=== PATIENT | female | born 1945 | race Caucasian/White ===

== ENCOUNTER 2017-03-09 08:00 | Outpatient (CLI) | payer MEDICARE, OTHER | END 2017-03-09 08:01 | disposition home or self-care (01) | LOC: LAB.WCP 08:00 | PROVIDERS: ATTEND Family Medicine | DX: N39.0 Urinary tract infection, site not specified (principal) | CPT/HCPCS: 87086 ==

== ENCOUNTER 2017-03-16 08:00 | Outpatient (CLI) | payer MEDICARE, OTHER | END 2017-03-16 08:01 | disposition home or self-care (01) | LOC: LAB.R 08:00 | PROVIDERS: ATTEND Physician Assistant Medical | DX: L03.039 Cellulitis of unspecified toe (principal) | CPT/HCPCS: 87070; 87205 ==

== ENCOUNTER 2017-04-02 08:00 | Outpatient (CLI) | payer MEDICARE, OTHER | END 2017-04-02 08:01 | disposition home or self-care (01) | LOC: LAB.R 08:00 | PROVIDERS: ATTEND Physician Assistant Medical | DX: L08.9 Local infection of the skin and subcutaneous tissue, unspecified (principal) | CPT/HCPCS: 87070; 87205 ==

== ENCOUNTER 2017-07-28 10:30 | Outpatient (CLI) | payer MEDICARE, OTHER | END 2017-07-28 10:31 | disposition home or self-care (01) | LOC: LAB.R 10:30 | PROVIDERS: ATTEND Podiatrist | DX: L03.116 Cellulitis of left lower limb (principal) | CPT/HCPCS: 87070; 87205 ==

== ENCOUNTER 2017-07-28 10:59 | Outpatient (CLI) | payer MEDICARE, OTHER ==
--- NOTE | 2017-07-28 15:21 | XRAY Report ---
THREE VIEW LEFT THIRD TOE: 07/28/2017 CLINICAL INDICATION: Ulcer. FINDINGS: AP, lateral, oblique views of the left third toe demonstrate soft tissue swelling. There is no evidence of fracture. No osteolysis is seen to suggest osteomyelitis. IMPRESSION: SOFT TISSUE SWELLING, BUT NO EVIDENCE OF FRACTURE OR OSTEOMYELITIS. TD: 07/28/2017 15:19
== END 2017-07-28 11:00 | disposition home or self-care (01) ==
LOC: DI 10:59
PROVIDERS: ATTEND Podiatrist
DX: L97.529 Non-pressure chronic ulcer of other part of left foot with unspecified severity (principal); L03.116 Cellulitis of left lower limb; R22.42 Localized swelling, mass and lump, left lower limb
CPT/HCPCS: 73660; 87070; 87205

== ENCOUNTER 2018-01-12 11:45 | Outpatient (CLI) | payer MEDICARE, OTHER | END 2018-01-12 11:46 | LOC: LAB.R 11:45 | PROVIDERS: ATTEND Podiatrist | DX: E11.622 Type 2 diabetes mellitus with other skin ulcer (principal) | CPT/HCPCS: 87070; 87077; 87181; 87205 ==

== ENCOUNTER 2018-03-18 10:32 | Outpatient (CLI) | payer MEDICARE, OTHER ==
--- NOTE | 2018-03-19 12:04 | Mammography Report ---
Reason: SCREENING MAMMO Procedure Date: 03/18/2018 Accession Number: [id number] / [id number] Procedure: MGN - Screening Mammo Dig Bilat CPT Code: FULL RESULT: EXAM: Screening Mammo Dig Bilat DATE: 03/18/2018 10:51 AM CLINICAL HISTORY: Routine screening TECHNIQUE: Bilateral CC and MLO views were obtained. COMPARISON: 01/16/2016, 10/19/2014, 06/08/2013 and 03/15/2012 FINDINGS: There are scattered fibroglandular densities. There is no significant interval change on the left. No suspicious masses, clustered microcalcifications, or regions of architectural distortion are identified. On the right in the upper outer quadrant approximately 8 to 9 cm from the nipple are 4-5 punctate appearing calcifications not definitely seen prior to 2015. Otherwise, no dominant mass, skin thickening or architectural distortion on the right. IMPRESSION: Negative left breast. Needs additional evaluation right breast by magnification views. RECOMMENDATION: Additional views right breast. BIRADS CATEGORY 0: Needs additional evaluation right breast. STANDARD QUALIFYING STATEMENTS: 1. This examination was reviewed with the aid of Computer-Aided Detection (CAD). 2. A negative or benign imaging report should not delay biopsy if clinically suspicious findings are present. Consider surgical consultation if warrented. More than 5% of cancers are not identified by imaging. 3. Dense breasts may obscure an underlying neoplasm.
== END 2018-03-18 10:33 | disposition home or self-care (01) ==
LOC: DI.N 10:32
DX: Z12.31 Encounter for screening mammogram for malignant neoplasm of breast (principal); R92.1 Mammographic calcification found on diagnostic imaging of breast
CPT/HCPCS: 77067

== ENCOUNTER 2018-04-08 13:20 | Outpatient (CLI) | payer MEDICARE, OTHER ==
--- NOTE | 2018-04-08 15:23 | Mammography Report ---
Reason: ABN MAMMO - RT SPEC VIEWS Procedure Date: 04/08/2018 Accession Number: [id number] / [id number] Procedure: ELIZABETH - Diag Special Views Dig RT CPT Code: FULL RESULT: EXAM: Diag Special Views Dig RT DATE: 04/08/2018 2:09 PM CLINICAL HISTORY: Recall from screening exam 03/18/2018 for right breast calcifications. TECHNIQUE: Right CC MLO and 90 degree 2-D and 3-D mammography. Spot magnification CC and 90 degree lateral. COMPARISON: 03/18/2018 through 03/15/2012 FINDINGS: The breasts demonstrate scattered fibroglandular densities bilaterally. Right breast: There is a 5 mm grouping of calcifications in the 11:00 breast, 10 cm from nipple. These calcifications appear to show dependent layering favoring milk of calcium. There is no associated mass or distortion. IMPRESSION: 5 mm grouping of probable milk of calcium. Probably benign. BI-RADS Category 3 RECOMMENDATION: 6 month follow-up diagnostic mammography to confirm expected imaging stability. Results and recommendations were conveyed to the patient at the time of this imaging appointment. BI-RADS CATEGORY 3: Probably benign STANDARD QUALIFYING STATEMENTS: 1. This examination was not reviewed with the aid of Computer-Aided Detection (CAD). 2. A negative or benign imaging report should not preclude biopsy if clinically suspicious findings are present. 3. Dense breasts may obscure an underlying neoplasm. 4. This examination was reviewed with the aid of 3D breast imaging (tomosynthesis).
== END 2018-04-08 13:21 | disposition home or self-care (01) ==
LOC: DI 13:20
PROVIDERS: ATTEND Physician Assistant Medical
DX: N63.10 Unspecified lump in the right breast, unspecified quadrant (principal); R92.8 Other abnormal and inconclusive findings on diagnostic imaging of breast

== ENCOUNTER 2018-11-18 10:22 | Outpatient (CLI) | payer MEDICARE, OTHER ==
--- NOTE | 2018-11-18 11:26 | Mammography Report ---
Reason: 6 MO F/U - ABN MAMMOGRAM Procedure Date: 11/18/2018 Accession Number: [id number] / [id number] Procedure: ELIZABETH - Diagnostic Dig RT CPT Code: FULL RESULT: EXAM: Diagnostic Dig RT DATE: 11/18/2018 11:12 AM CLINICAL HISTORY: Diagnostic mammogram. Follow-up of calcifications. TECHNIQUE: (R) - Right CC and MLO views were obtained. Right spot magnified CC, spot magnified ML and ML images are obtained. COMPARISON: 04/08/2018 through 10/11/2014. PARENCHYMAL PATTERN: (A) - The breast(s) demonstrate(s) scattered fibroglandular densities. FINDINGS: The previously seen 5 mm grouping of calcifications in the 11:00 right breast, 10 cm from the nipple have increased in number. Previously favored layering is not demonstrated on today's exam. No associated mass or distortion is seen. IMPRESSION: Suspicious findings. BI-RADS category 4. RECOMMENDATION: (BIOPSY) - stereotactic, right breast. BI-RADS CATEGORY: (4) - Suspicious. STANDARD QUALIFYING STATEMENTS: 1. This examination was not reviewed with the aid of Computer-Aided Detection (CAD). 2. A negative or benign imaging report should not preclude biopsy if clinically suspicious findings are present. 3. Dense breasts may obscure an underlying neoplasm. 4. This examination was reviewed with the aid of 3D breast imaging (tomosynthesis).
== END 2018-11-18 10:23 | disposition home or self-care (01) ==
LOC: DI 10:22
PROVIDERS: ATTEND Physician Assistant Medical
DX: R92.8 Other abnormal and inconclusive findings on diagnostic imaging of breast (principal)
CPT/HCPCS: 77065; G0279

== ENCOUNTER 2018-12-07 09:53 | Outpatient (CLI) | payer MEDICARE, OTHER ==
[~2018-12-07 09:53] MED LIST: BUFFERED LIDOCAINE 10 ML SYRINGE ONE; BUPIVACAINE 0.5%-EPI 1:200000 PF 10 ML VIAL ONE
--- NOTE | 2018-12-07 15:29 | Mammography Report ---
Reason: ABN MAMMOGRAM - CALCIFICATIONS Procedure Date: 12/07/2018 Accession Number: [id number] / [id number] Procedure: ELIZABETH - Stereotactic Core BX RT CPT Code: FULL RESULT: EXAM: Stereotactic Core BX RT DATE: 12/07/2018 11:46 AM CLINICAL HISTORY: ABN MAMMOGRAM - CALCIFICATIONS COMPARISON: Mammograms dating 11/18/2018 through 03/19/2018. CLINICAL DATA: Target calcifications measuring 5 mm in the 11 o'clock axis of the right breast. Informed consent was obtained. The patient was positioned in the mammography machine with biopsy attachment. Targeting imaging was obtained and the lesion was selected. The breast was approached from the lateral aspect. Using standard aseptic technique, 1% buffered lidocaine was injected into the breasts for local anesthesia. A small sujatha was made in the skin with a #11 blade. A 9-gauge vacuum-assisted device was advanced into the breasts towards the target and confirmatory imaging was obtained to verify targeting and 12 specimens were obtained. Specimen radiography was performed which demonstrated the presence of calcifications in the sample. A biopsy marker clip was then placed into the biopsy cavity. The biopsy device was subsequently removed from the breast. Hemostasis was achieved. Follow-up 3-D mammography was then performed to verify biopsy targeting and clip placement. The mammography showed excellent clip position . The wound was dressed and ice applied. The patient was observed for approximately 15 minutes, then discharged from the diagnostic imaging Department in stable condition following instructions on wound care and obtaining biopsy results. The patient is scheduled to receive her biopsy results from [facility] Esquivel . The tissue was sent for histologic analysis. IMPRESSION: Uncomplicated right breast stereotactic biopsy. RADIA
[2018-12-07] MEDS ORDERED: BUFFERED LIDOCAINE 10 ML SYRINGE IU ONE (15:31)
== END 2018-12-07 09:54 | disposition home or self-care (01) ==
LOC: DI 09:53
PROVIDERS: ATTEND Physician Assistant Medical
DX: R92.1 Mammographic calcification found on diagnostic imaging of breast (principal); D24.1 Benign neoplasm of right breast; R92.0 Mammographic microcalcification found on diagnostic imaging of breast
CPT/HCPCS: 19081

== ENCOUNTER 2019-02-17 11:27 | Outpatient (CLI) | payer MEDICARE, OTHER | END 2019-02-17 11:28 | disposition home or self-care (01) | LOC: DI 11:27 | PROVIDERS: ATTEND Physician Assistant Medical | DX: I51.7 Cardiomegaly (principal) | CPT/HCPCS: 93306 ==

== ENCOUNTER 2020-01-18 10:52 | Outpatient (CLI) | payer MEDICARE, OTHER ==
--- NOTE | 2020-01-19 07:29 | Mammography Report ---
BILATERAL DIGITAL SCREENING MAMMOGRAM 3D/2D: 01/18/2020 CLINICAL: Routine screening. Comparison is made to exams dated: 12/07/2018 mammogram, 11/18/2018 mammogram, 04/08/2018 mammogram, mammogram, 03/18/2018 mammogram, and 10/19/2014 mammogram - [facility]. Th ere are scattered fibroglandular elements in both breasts. There is a biopsy clip in the right breast. No significant masses, calcifications, or other findings are seen in either breast. There has been no significant interval change. IMPRESSION: NEGATIVE There is no mammographic evidence of malignancy. A 1 year screening mammogram is recommended. This exam was interpreted at Station ID: [id number]. NOTE: For mammograms, a report in lay terms will be sent to the patient. Approximately 15% of breast malignancies will not be visualized mammographically. In the management of a palpable breast mass, a negative mammogram must not discourage biopsy of a clinically suspicious lesion. Electronically Signed By: Jacobo walter/hien:01/18/2020 16:06:38 ACR BI-RADS Category 1: Negative 3341F PARENCHYMAL PATTERN: (A) - The breast(s) demonstrate(s) scattered fibroglandular densities. BI-RADS CATEGORY: (1) - 1 RECOMMENDATION: (ANNUAL) - Recommend routine annual screening mammography. [id number] 1 year screening LATERALITY: (B)
== END 2020-01-18 10:53 | disposition home or self-care (01) ==
LOC: DI 10:52
DX: Z12.31 Encounter for screening mammogram for malignant neoplasm of breast (principal)
CPT/HCPCS: 77063; 77067

== ENCOUNTER 2020-06-25 15:00 | Outpatient (CLI) | payer MEDICARE, OTHER ==
--- NOTE | 2020-06-25 16:52 | DEXA Report ---
PROCEDURE: Dexa Spine and/or Hip INDICATIONS: POST MENOPAUSAL TECHNIQUE: Dual energy x-ray absorptiometry (DXA) was performed on a Bubbly System. Regions measur ed are the AP Spine, femoral neck, and if needed forearm. COMPARISON: None. FINDINGS: Lumbar Spine: Bone Mineral Density 1.167 g/cm/cm,T score 0, normal Left Hip: Bone Mineral Density 0.895 g/cm/cm,T score -0.9, normal Left Femoral Neck: Bone Mineral Density 0.860 g/cm/cm, T score -1.3, minimal osteopenia (T score greater or equal to -1.0: NORMAL) (T score from -1.1 to -2.4: OSTEOPENIA) (T score less than or equal to -2.5 to: OSTEOPOROSIS) Impression: Minimal osteopenia in the left femoral neck. Patients with diagnosis of osteoporosis or osteopenia should have regular bone mineral density assess ment. For those eligible for Medicare, routine testing is allowed once every 2 years. Testing frequ ency can be increased for patients who have rapidly progressing disease or for those who are receivin g medical therapy to restore bone mass. Reviewed by: Bernice Carmona MD on 06/25/2020 4:50 PM PST Approved by: Bernice Carmona MD on 06/25/2020 4:50 PM PST Station ID: [id number]
== END 2020-06-25 15:01 | disposition home or self-care (01) ==
LOC: DI 15:00
PROVIDERS: ATTEND Physician Assistant Medical
DX: M85.88 Other specified disorders of bone density and structure, other site (principal)

== ENCOUNTER 2021-07-16 08:50 | Outpatient (CLI) | payer MEDICARE, OTHER ==
[2021-07-16] MEDS ORDERED: REGADENOSON 0.4 MG/5 ML SYRINGE IVP ONE ×2 (11:21→15:05)
[2021-07-16] MEDS ORDERED: AMINOPHYLLINE 500 MG/20 ML VIAL ONE (11:21)
--- NOTE | 2021-07-16 13:45 | CARDIAC PROCEDURE NOTE ---
Stress Test Report Service Date: 07/16/21 Ordering Provider: TOMAS Esquivel Indication for Test: Dyspnea on exertion Cardiac Risk Factors: Postmenopausal status, diabetes mellitus on insulin, obesity, hypertension, hyperlipidemia, family history of heart disease in her mother with an PR. Type of Stress Test: Pharmacologic Stress Test with MPI Pharmacologic Agent: Lexiscan Procedure: After signing informed consent, the patient underwent a Lexiscan pharmaceutical stress test with nuclear myocardial perfusion imaging. Resting Heart Rate: 82 Peak HR: 103 with frequent unifocal PVCs. Resting BP: 220/78, then pt rested for 15 min and BP was 176/81 before starting test Peak BP: 174/80 Lexiscan was infused per protocol. Pt had brief SOB and no chest pain or nausea. Resting EKG: NSR, Left atrial enlargement, rare PVCs. EKG at peak: Sinus tachycardia, rate 103, frequent unifocal PVCs with a run of ventricular bigeminy, scooping 2mm ST segment depressions in leads II, III, AVF, and V6. Nuclear images were reported separately. Summary: 1) Abnormal resting BP and resting EKG. 2) PVCs increased with Lexiscan stress. 3) Non-significant EKG changes seen with Lexiscan stress. 4) Nuclear images were reported separately and showed: Normal distribution of radioactive activity in the left and right ventricular myocardium, no fixed or reversible perfusion defects, normal LV ejection fraction. Conclusion: 1) Normal stress test regarding coronary ischemia or infarction 2) This patient's cardiac risk: Low-Moderate
--- NOTE | 2021-07-16 21:31 | Nuclear Medicine Report ---
PROCEDURE: Rest and stress myocardial perfusion SPECT with gated imaging and ejection fraction INDICATIONS: DYSPNEA ON EXERTION RADIOPHARMACEUTICAL: 12.4 mCi Tc-99m Myoview IV at rest and 38.5 mCi Tc-99m Myoview IV at peak exerc ise. Xmt-rxa-bjldodsn was performed. Lexiscan 0.4 mg was administered. TECHNIQUE: Radiopharmaceutical was injected at peak stress test, and also at rest. SPECT images wer e obtained. SPECT myocardial perfusion images were displayed in short axis, horizontal long axis, an d vertical long axis views. Gated images were reviewed using AutoQUANT software. COMPARISON: None available. FINDINGS: Raw data: There is good myocardial labeling by radiotracer. No significant motion artifacts. Lung- to-heart ratio is 0.33 (normal is less than 0.46 for tetrafosmin tracer). Left ventricle function: Gated images demonstrate normal left ventricle wall thickening. No segment al wall motion abnormality. No transient ischemic dilation; TID is 1.1 (normal less than 1.30). The left ventricle resting end-diastolic volume is 56 mL. Left ventricle stress ejection fraction is 89 %; normal values are above 45%. Myocardial perfusion: There is normal distribution of activity in the left and right ventricular porsche cardium. No fixed or reversible perfusion defects. IMPRESSION: No stress perfusion defects to indicate ischemia. Ejection fraction 89%. No definitive EKG changes of ischemia. PQRS ATTESTATIONS: Measure 322 - Is this imaging test primarily performed on a low-risk surgery patient for preoperative evaluation within 30 days preceding their low-risk non-cardiac surgery? Low-risk surgery is defined as cardiac or myocardial infarction less than 1%, including (but not limited to) endoscopic pr ocedures, superficial procedures, cataract surgery, and excisional breast surgery: Answer: No Measure 323 - Is this imaging test performed primarily for the monitoring of an asymptomatic patient who had percutaneous coronary intervention on the visit date or within 2 years of the visit date? An swer: No Measure 324 - Is this imaging test performed primarily for the initial detection and risk assessment on an asymptomatic, low coronary heart disease patient? Low CHD risk definition = clinicians should consider the maximum number of available patient factors used to estimate risk based on [place] (A TP III criteria), typically age, gender, diabetes, smoking status, and use of blood pressure medicati on, and integrate age appropriate estimates for missing elements, such as LDL or standard blood press ure. Answer: No Reviewed by: Bernice Carmona MD on 07/16/2021 9:29 PM PST Approved by: Bernice Carmona MD on 07/16/2021 9:29 PM PST Station ID: [id number]
== END 2021-07-16 08:51 | disposition home or self-care (01) ==
LOC: DI 08:50
PROVIDERS: ATTEND Physician Assistant Medical
DX: R06.09 Other forms of dyspnea (principal); E11.9 Type 2 diabetes mellitus without complications; Z79.4 Long term (current) use of insulin; E66.9 Obesity, unspecified; I10 Essential (primary) hypertension; E78.5 Hyperlipidemia, unspecified; Z82.49 Family history of ischemic heart disease and other diseases of the circulatory system; Z78.0 Asymptomatic menopausal state; R94.31 Abnormal electrocardiogram [ECG] [EKG]
CPT/HCPCS: 78452; 93016; 93017; 93018; A9500; J2785

== ENCOUNTER 2021-07-25 10:59 | Outpatient (CLI) | payer MEDICARE, OTHER ==
--- NOTE | 2021-07-26 08:38 | Mammography Report ---
BILATERAL DIGITAL SCREENING MAMMOGRAM 3D/2D: 07/25/2021 CLINICAL: Routine screening. Comparison is made to exams dated: 01/18/2020 mammogram, 12/07/2018 mammogram, and 11/18/2018 mammogram - [facility]. The tissue of both breasts is predominantly fatty. There is a biopsy clip in the right breast. No significant masses, calcifications, or other findings are seen in either breast. There has been no significant interval change. IMPRESSION: NEGATIVE There is no mammographic evidence of malignancy. A 1 year screening mammogram is recommended. This exam was interpreted at Station ID: [id number]. NOTE: For mammograms, a report in lay terms will be sent to the patient. Approximately 15% of breast malignancies will not be visualized mammographically. In the management of a palpable breast mass, a negative mammogram must not discourage biopsy of a clinically suspicious lesion. Electronically Signed By: Cristina lenz/penrad:07/25/2021 15:10:49 ACR BI-RADS Category 1: Negative 3341F PARENCHYMAL PATTERN: (F) - The breast(s) demonstrate(s) diffuse fatty replacement. BI-RADS CATEGORY: (1) - 1 RECOMMENDATION: (ANNUAL) - Recommend routine annual screening mammography. [id number] 1 year screening LATERALITY: (B)
== END 2021-07-25 11:00 | disposition home or self-care (01) ==
LOC: DI.N 10:59
DX: Z12.31 Encounter for screening mammogram for malignant neoplasm of breast (principal)

== ENCOUNTER 2022-03-26 14:57 | Outpatient (CLI) | payer MEDICARE, OTHER | END 2022-03-26 14:58 | disposition home or self-care (01) | LOC: DI 14:57 | PROVIDERS: ATTEND Physician Assistant Medical | DX: I34.0 Nonrheumatic mitral (valve) insufficiency (principal); I51.7 Cardiomegaly | CPT/HCPCS: 93306 ==

== ENCOUNTER 2023-03-18 14:30 | Outpatient (CLI) | payer MEDICARE, OTHER ==
--- NOTE | 2023-03-18 15:05 | Sleep Patient Instructions ---
Sleep Center Visit Summary - Patient Visit Information Reason for Visit: Initial consult for evaluation of sleep disordered breathing and other sleep issues. - Patient Instructions Instructions Attached: Sleep Study Additional Instructions: You will be completing a sleep study, either an in-lab polysomnography (PSG) or home sleep study (HST). You will follow-up in the sleep care office after the sleep study is completed to hear the results and talk about therapy, if needed. You will be called by our office staff to schedule this appointment, but you may contact us with any questions. - Clinic Information Contact: [facility] [address] [place] [email or web address] T: [phone]
--- NOTE | 2023-03-18 15:09 | SLEEP CARE CONSULTATION ---
Information from patient questionnaire entered by Kavita Yang. I have reviewed and concur with the information entered by Kavita Yang. This document represents the service I personally performed and the decisions made by me, Yu Wilson ARNP. History of Present Illness Service Date and Time: 03/18/2023 1430 Reason for Visit: New patient Chief Complaint: reports: Unrefreshed sleep, Snoring, Excessive daytime sleepiness, Frequent awakenings at night Date of Onset: 5+YRS Usual bedtime: 11PM Time it takes to fall asleep: 30MIN Snores at night: Yes Observed to quit breathing while asleep: No Sleeps alone due to snoring: No Number of times waking at night: 2-3 Reasons for waking at night: reports: Pain, Bathroom. denies: Choking, Gasping for air Toss, Turn, or Twitch while sleeping: Yes Recalls having dreams: Yes Usually gets out of bed at: 9AM Feels refreshed in the morning: No Morning headache: No Sleepy or fatigued during the day: Yes Ever fallen asleep while driving: No Takes day naps: Yes (daily for about 1 hour) Dreams during day naps: No Prior sleep studies: No Additional HPI information: I had the pleasure of seeing MARIO MURO today regarding the possibility of her having a sleep disorder. Her current complaints are unrefreshed sleep, snoring, excessive daytime sleepiness and frequent night awakenings. Her heart doctor recommended her seek evaluation. - Parasomnia Symptoms Ever been unable to move upon waking from sleep: No Walks in sleep: No Talks in sleep: No Ever acted out dreams in sleep: No Ever felt weak in the knees when startled or emotional: Yes (has not fallen to ground) Bothered by creepy, crawly, restless sensations in legs: Yes (mostly at night; sometimes during day) Problems with memory or concentration: No Subjective Initial [place] Sleepiness Scale score: 16 (03/08/23) Past Medical History Past Medical History: reports: Hypertension, Claustrophobia, Diabetes, Arthritis, Insulin resistance, Hypothyroidism, Fibromyalgia, GERD Social History The patient's occupation is a RE. Patient is and lives in [place]. Have you smoked in the past 12 months: No Alcohol use: No Caffeine use: No Family History Family history of sleep disordered breathing: Yes Family Hx Sleep Apnea: Father: Snoring, Sibling: Snoring Allergies and Home Medications Known drug allergies: Yes (SULFA) Drug allergies reviewed: Yes Home medication list reviewed: Yes Allergy and home medication list: Allergies lovastatin Allergy (Verified 03/17/23 12:47) Unknown Sulfa (Sulfonamide Antibiotics) Allergy (Verified 03/17/23 12:47) Unknown Home Medications Medication Instructions Recorded Confirmed Last Taken Type Rosuvastatin Calcium [Crestor] 10 mg PO DAILY 09/24/15 05/07/20 Unknown History Thyroid,Pork [[place] Thyroid] 120 mg PO DAILY 09/24/15 05/07/20 Unknown History lisinopriL [Lisinopril] 10 mg PO DAILY 09/24/15 05/07/20 Unknown History Insulin Aspart [NovoLOG] 5 - 20 unit SUBQ TIDWM 05/07/20 05/07/20 Unknown History Brimonidine 0.1% Ophth Drops See Rx Instructions .ROUTE .COMPLEX 03/17/23 03/17/23 Unknown History [Alphagan P 0.1% Ophth Drops] Insulin Glargine,Hum.rec.anlog See Rx Instructions .ROUTE .COMPLEX 03/17/23 1 Unknown History [Basaglar Kwikpen U-100] Timolol 0.25% Ophth Drops See Rx Instructions .ROUTE .COMPLEX 03/17/23 03/17/23 Unknown History [Timoptic 0.25% Ophth Drops] carvediloL [Coreg] See Rx Instructions .ROUTE .COMPLEX 03/17/23 03/17/23 Unknown History metFORMIN [Glucophage] See Rx Instructions .ROUTE .COMPLEX 03/17/23 03/17/23 Unknown History Review of Systems Cardiovascular: reports: high blood pressure, leg or foot swelling Respiratory: reports: shortness of breath, sputum production Gastrointestinal: reports: heartburn, difficulty swallowing Neurological: denies: headaches Psychiatric: reports: claustrophobia. denies: anxiety, depression Ear/Nose/Throat: reports: sinus problems, tonsillectomy, wisdom teeth removed Endocrine: reports: thyroid disease, sluggishness Musculoskeletal: reports: joint pain, back pain, muscle pain or cramping Immunologic: reports: sneezing Physical Exam Vital signs obtained and entered by: KAVITA Crystal MA Blood Pressure: 120/72 (LEFT ARM) Cuff size: long Heart Rate: 83 O2 Saturation: 98 Height: 5 ft 9 in Weight: 258 lb 9.6 oz Body Mass Index: 38.2 BMI Classification: Obese Neck circumference: 16.5 Mouth and throat: narrow oropharynx Soft palate: long Hard palate: normal Uvula: normal Uvula visualization: 0% Mallampati Class IV Tongue: enlarged in size with teeth garibay on lateral edges Tonsils: absent bilaterally Heart: regular rate and rhythm Lungs: clear bilaterally Impression and Plan 1. Suspected Obstructive Sleep Apnea-Hypopnea Syndrome, as suggested by a history of irregular snoring, frequent awakening during the night, unrefreshed sleep, and excessive daytime sleepiness. Narrow oropharynx and obesity are common predisposing factors for obstructive sleep apnea-hypopnea syndrome. I recommend proceeding to polysomnography to confirm the diagnosis and to assess severity. If the patient has significant sleep disordered breathing, a manual CPAP titration study will also be performed to find the optimal treatment pressure. I informed the patient of what the sleep studies involve and after some discussion, obtained agreement to proceed. The pathophysiology of obstructive sleep apnea-hypopnea syndrome was discussed with the patient and health risks of cardiovascular and cerebrovascular disease if not treated. Risks of drowsy driving discussed in detail and patient advised to avoid long distance driving and to dust puller at the first sign of drowsiness. Patient agreed to plan. * Schedule polysomnography. * Avoid long distance driving or driving when feeling sleepy. * Avoid alcohol, sedative and muscle relaxant around bedtime. * Attempt to lose weight. * Review instructions provided by trained office staff on how to prepare for the sleep study. * Return for follow-up after sleep study completed. Counseling Topics: Weight loss health impact Plan: PSG/HST Visit Type: In Office Time Spent with Patient (minutes): 31 Provider Statement: I spent 100% of the Face to Face Visit with the patient with greater than 50% spent counseling the patient and coordination of care.
[2023-03-18 15:24] VITALS: BP 120/72; O2SAT 98
== END 2023-03-18 14:31 | disposition home or self-care (01) ==
LOC: SC 14:30
PROVIDERS: ATTEND Nurse Practitioner Family
DX: G47.10 Hypersomnia, unspecified (principal); R53.83 Other fatigue; G47.8 Other sleep disorders; R06.83 Snoring; E11.9 Type 2 diabetes mellitus without complications; I10 Essential (primary) hypertension; Z79.4 Long term (current) use of insulin; E66.9 Obesity, unspecified; Z68.38 Body mass index [BMI] 38.0-38.9, adult
CPT/HCPCS: 99203; G0463; 99212

== ENCOUNTER 2023-04-21 19:38 | Outpatient (CLI) | payer MEDICARE, OTHER | END 2023-04-21 19:39 | disposition home or self-care (01) | LOC: SC 19:38 | PROVIDERS: ATTEND Nurse Practitioner Family | DX: G47.33 Obstructive sleep apnea (adult) (pediatric) (principal); G47.61 Periodic limb movement disorder; E66.9 Obesity, unspecified; Z68.38 Body mass index [BMI] 38.0-38.9, adult; E11.9 Type 2 diabetes mellitus without complications; I10 Essential (primary) hypertension | CPT/HCPCS: 95810 ==

== ENCOUNTER 2023-05-08 11:28 | Outpatient (CLI) | payer MEDICARE, OTHER ==
--- NOTE | 2023-05-08 11:56 | Sleep Patient Instructions ---
Sleep Center Visit Summary - Patient Visit Information Reason for Visit: Sleep study follow-up - Patient Instructions Instructions Attached: CPAP Additional Instructions: You are being started on CPAP therapy with pressure setting at 4-15 cmH2O. You w ill need to call the sleep care office to set up your follow up once you have your APAP machine and we will schedule a visit to check compliance and response to therapy at that time. You may call the office with any concerns about pressure feeling too low or too much for adjustment, if needed. You should contact DME supplier for any questions or concerns about mask or equipment. Please call office to schedule a follow up appointment in the sleep care office one month after obtaining new device. - Clinic Information Contact: [facility] [address] [place] [email or web address] T: [phone]
--- NOTE | 2023-05-08 11:58 | SLEEP CARE CONSULTATION ---
Information from patient questionnaire entered by Pam Yang. I have reviewed and concur with the information entered by Pam Yang. This document represents the service I personally performed and the decisions made by , Yu Wilson ARNP. History of Present Illness Service Date and Time: 05/08/2023 112 Initial [place] Sleepiness Scale score: 16 (03/08/23) Current [place] Sleepiness Scale score: 12 (05/08/23) Additional HPI information: MARIO MURO returns for follow up and results of the recently performed polysomnography. The sleep study showed mild obstructive sleep apnea with an average AHI of 12.6 and al oxygen saturation of 81%. She had severe PLMs contributing to sleep fragmentation. I explained the pathophysiology behind obstructive sleep apnea. We then spent quite a bit of time discussing different treatment options. For mild obstructive sleep apnea, surgery and oral appliance are alternatives to nasal CPAP therapy but in moderate or severe cases, nasal CPAP is the most effective and reliable treatment. I reviewed the impact of weight changes on sleep apnea and strongly recommended losing weight. After some discussion, the patient opted to go with the nasal CPAP therapy. Nasal autoCPAP set at 4-15 cmH20 will be ordered with rationale explained. A manual titration study will be ordered if unable to find optimal pressure with office adjustments. I explained how CPAP machine works and what to expect when using the machine. Using CPAP every night in order to get used to it was emphasized. Patient advised to put CPAP mask on before getting into bed so as not to fall asleep without CPAP. To assist acclimation to CPAP use, it could also be used for a short time during day while reading or watching TV. The patient was instructed to call the CPAP supplier to discuss any mechanical problem that may occur. If the mask given is uncomfortable or is difficult to keep on through the night even with adjustment, contact the CPAP supplier as many will replace with another mask style if notified before 30 days. If snoring or perceives is not getting enough air or too much air from the machine, notify this office. Patient does not drink alcohol. Patient was cautioned about risks of drowsy driving until sleepiness symptoms resolve. Patient denies drowsy driving. Sleep Study - Results Type of Sleep Study: Polysomnography (COMPLETED 04/21/23) Prior sleep studies: No Polysomnography/Home Sleep Study results: IMPRESSION: The quality of the study is good. The patient had reduced sleep efficiency due to several prolonged awakenings during the night. The sleep architecture was abnormal for sleep fragmentation and lack of slow wave sleep (N3). Respiratory monitoring showed mild obstructive sleep apnea-hypopnea (AHI = 12.6) associated with frequent arousals, oxyhemoglobin desaturation and mild hypoxia (al oxygen saturation of 81%). The respiratory events occurred more frequently during supine sleep (supine AHI = 20.0; non- supine = 12.24). Snore was infrequent and light in intensity. There was severe periodic leg movement of sleep contributing to the sleep fragmentation. Cardiac rhythm was normal sinus rhythm without significant arrhythmia. No abnormal behavior (parasomnia) observed during the night. Allergies and Home Medications Known drug allergies: Yes (as listed) Drug allergies reviewed: Yes Home medication list reviewed: Yes (no changes) Allergy and home medication list: Allergies lovastatin Allergy (Verified 05/07/23 09:50) Unknown Sulfa (Sulfonamide Antibiotics) Allergy (Verified 05/07/23 09:50) Unknown Review of Systems Review of systems same as previous: Yes (NO CHANGE) Physical Exam Vital signs obtained and entered by: PAM Crystal MA Blood Pressure: 122/60 (LEFT ARM) Cuff size: regular Heart Rate: 64 O2 Saturation: 98 Height: 5 ft 8 in Weight: 257 lb 3.2 oz Body Mass Index: 39.1 BMI Classification: Obese Impression and Plan 1. Obstructive Sleep Apnea-Hypopnea Syndrome, mild, with lowest oxygen saturation of 81%. Obviously this is the cause of the patients symptoms of unrefreshed sleep, and excessive daytime sleepiness. Positive pressure therapy could benefit hypertension, diabetes, fibromyalgia and gastric reflux. As mentioned above, the patient will be started on nasal autoCPAP therapy with pressure set at 4-15 cmH2O. Compliance guidelines also reviewed. A copy of compliance guidelines will be given for reference at check out. Because the apnea is more severe supine, I instructed to avoid sleeping supine using pillow positioning until able to start CPAP use. 2. Hypoxemia, mild, with a al oxygen saturation of 81% and 9.3 minutes spent under 90%. The baseline oxygen saturation was normal with an average oxygen saturation of 94%. 3. Periodic limb movement, severe, that did not fragment patients sleep. Periodic limb movement of sleep (PLMS) is characterized by episodes of repetitive limb movements that occur during sleep and usually involve the lower limbs. The etiology is unknown. Sleep hygiene methods can also improve sleep as well as lifestyle changes such as regular exercise. Patient was advised that no treatment is needed at this time. If symptoms increase, then further evaluation is indicated. 4. Obesity, unspecified. Currently patients BMI is 39.1 Obesity increases the risk of apnea, CPAP pressure requirements and overall health risks especially cardiovascular and diabetes. Thus patient is advised to lose weight. * Nasal auto CPAP therapy, pressure at 4-15 cm H2O. * Attempt to lose weight. * Avoid alcohol consumption near bedtime. * Avoid supine sleep until using CPAP. * The patient is again cautioned about driving until sleepiness completely resolves. * Return one month after CPAP obtained. I will assess response to therapy and compliance at that time. Counseling Topics: Weight loss health impact Prescriptions: Auto CPAP Plan: compliance followup Visit Type: In Office Time Spent with Patient (minutes): 23 Provider Statement: I spent 100% of the Face to Face Visit with the patient with greater than 50% spent counseling the patient and coordination of care.
[2023-05-08 12:02] VITALS: BP 122/60; O2SAT 98
== END 2023-05-08 11:29 | disposition home or self-care (01) ==
LOC: SC 11:28
PROVIDERS: ATTEND Nurse Practitioner Family
DX: G47.33 Obstructive sleep apnea (adult) (pediatric) (principal); R09.02 Hypoxemia; G47.61 Periodic limb movement disorder; E66.9 Obesity, unspecified; Z68.39 Body mass index [BMI] 39.0-39.9, adult
CPT/HCPCS: 99213; G0463; 99212

== ENCOUNTER 2023-08-12 09:08 | Outpatient (CLI) | payer MEDICARE, BC ==
--- NOTE | 2023-08-12 09:28 | Sleep Patient Instructions ---
Sleep Center Visit Summary - Patient Visit Information Reason for Visit: First compliance follow-up - Patient Instructions Additional Instructions: You were here for follow up of CPAP therapy. You will be continued on CPAP therapy with pressure at 8-12 cmH2O. Please let us know if the pressure change is uncomfortable and we can make further adjustments of the pressure. You should follow up with sleep care in 3 months. You may contact us sooner for any questions or concerns. - Clinic Information Contact: [facility] [address] [place] [id number] [email or web address] T: [phone]
--- NOTE | 2023-08-12 09:32 | SLEEP CARE CONSULTATION ---
Information from patient questionnaire entered by Pam Yang. I have reviewed and concur with the information entered by Pam Yang. This document represents the service I personally performed and the decisions made by , Yu Wilson ARNP. History of Present Illness Service Date and Time: 08/12/2023 09 Previous diagnosis: Mild, Obstructive Sleep Apnea-Hypopnea Syndrome AHI: 12.6 (04/21/23) Reason for follow up: first compliance Equipment type: CPAP (RESMED AIRSENSE 10 AUTOSET SET UP 05/21/23) Equipment obtained from: Other ([facility]; getting supplies) Mask style: Nasal Mask brand: Respironics ([place], s/m cushion) Backup mask available: No (will keep old mask when replaced) Last cushion change: 10 days ago Prior sleep studies: No Type of Sleep Study: Polysomnography (COMPLETED 04/21/23) HPI additional information: MARIO MURO was diagnosed to have mild, AHI 12.2, obstructive sleep apnea- hypopnea syndrome and returned today for CPAP therapy first compliance follow- up. Sleep Study - Results Type of Sleep Study: Polysomnography (COMPLETED 04/21/23) Prior sleep studies: No CPAP Compliance Data - Data Reviewed with Patient Average duration of nightly device use: 4 HRS 5 MINS Compliance rate %: 70 (07/08/23-08/06/23; days used) Current pressure setting (cmH2O): 4-15 (median 7.3, avg 10.9, max 11.9) Average residual AHI: 2.2 Central apnea: 0.1 Obstructive apnea: 1.7 Hypopnea: 0.3 Average large leak: 4.3 L/min Subjective Missed days of use due to: reports: illness, other (unable to sleep with mask on) Patient concerns: reports: nasal congestion (has sinus issues), dry mouth, nose, throat (dry mouth, intermittent), other (headache at beginning, resolved now). denies: aerophagia, mask discomfort, air blowing in eyes, mask leak noise, condensation in mask/hose, epistaxis Observed to snore while using device: No Current pressure setting perceived as: comfortable On therapy, patient: reports: sleeping better, awakening more refreshed, being more awake and alert during the day, more rested overall. denies: drowsiness while driving Initial [place] Sleepiness Scale score: 16 (03/08/23) Current [place] Sleepiness Scale score: 10 (08/12/23) Allergies and Home Medications Known drug allergies: Yes (as listed) Drug allergies reviewed: Yes Home medication list reviewed: Yes (no changes) Allergy and home medication list: Allergies lovastatin Allergy (Verified 08/10/23 09:01) Unknown Sulfa (Sulfonamide Antibiotics) Allergy (Verified 08/10/23 09:01) Unknown Review of Systems Review of systems same as previous: Yes (no changes) Physical Exam Vital signs obtained and entered by: PMA Crystal MA Blood Pressure: 135/63 (LEFT ARM) Cuff size: regular Heart Rate: 84 O2 Saturation: 96 Height: 5 ft 8 in Weight: 261 lb 9.6 oz Body Mass Index: 39.7 BMI Classification: Obese Impression and Plan 1. Obstructive Sleep Apnea-Hypopnea Syndrome, mild, with good treatment compliance and good apnea control. On CPAP therapy, the patient has better sleep quality and is more rested overall. She states she was unable to sleep with the mask on for the first month but she has been able to in the last month or so wear for 4 hours. She will still take it off at the 4-hour lilly and sleep for a few more hours. I encouraged her to try to increase time in the mask until she is able to sleep all night with the mask on. She voiced understanding and agreement with this plan. The patients pressure will be changed to autoCPAP 8- 12 cmH20 to reflect pressures being used. Patient advised to contact me if pressure change is uncomfortable so that it can be adjusted. Goals for apnea control discussed. Patient's apnea severity and rationale for treatment to reduce apnea, improve sleep quality and reduce cardiovascular and cerebrovascular events was reviewed. I also reviewed the benefit of consistent device use of CPAP for hypertension, diabetes, gastric reflux and fibromyalgia. 2. Obesity, unspecified. Currently patients BMI is 39.7. Obesity increases the risk of apnea, CPAP pressure requirements and overall health risks especially cardiovascular and diabetes. Thus patient is advised to lose weight. * Change auto CPAP pressure to 8-12 cmH2O * Notify me if snoring with mask or feeling that the pressure is too much or too little * Attempt to lose weight * Call this office if any problems using CPAP * Return for follow up in 3 months, or sooner if concerns arise Counseling Topics: Spare mask, Weight loss health impact Follow up with Sleep Care in: 3 months Visit Type: In Office Time Spent with Patient (minutes): 20 Provider Statement: I spent 100% of the Face to Face Visit with the patient with greater than 50% spent counseling the patient and coordination of care.
[2023-08-12 09:33] VITALS: BP 135/63; O2SAT 96
== END 2023-08-12 09:09 | disposition home or self-care (01) ==
LOC: SC 09:08
PROVIDERS: ATTEND Nurse Practitioner Family
DX: G47.33 Obstructive sleep apnea (adult) (pediatric) (principal); E66.9 Obesity, unspecified; Z68.39 Body mass index [BMI] 39.0-39.9, adult
CPT/HCPCS: 99213; G0463; 99212

== ENCOUNTER 2023-09-03 08:45 | Outpatient (CLI) | payer MEDICARE, BC ==
--- NOTE | 2023-09-03 19:39 | XRAY Report ---
PROCEDURE: Shoulder 3 View LT INDICATIONS: LEFT SHOULDER PAIN TECHNIQUE: 3 views of the shoulder were acquired. COMPARISON: None available FINDINGS: Bones: Comminuted proximal humeral fracture. Normal bone mineralization. No evidence of dislocation. Soft tissues: No suspicious soft tissue calcifications. IMPRESSION: Comminuted proximal humeral fracture Reviewed by: Mor Buenrostro MD on 09/03/2023 6:38 PM AKDT Approved by: Mor Buenrostro MD on 09/03/2023 6:38 PM AKDT Station ID: [id number]
== END 2023-09-03 23:59 | disposition home or self-care (01) ==
LOC: DI.WOS 08:45
PROVIDERS: ATTEND Orthopaedic Surgery
DX: S42.202A Unspecified fracture of upper end of left humerus, initial encounter for closed fracture (principal)

== ENCOUNTER 2023-09-14 09:36 | Outpatient (CLI) | payer MEDICARE, BC ==
--- NOTE | 2023-09-14 17:46 | XRAY Report ---
PROCEDURE: Shoulder 2+V LT INDICATIONS: HUMERUS FRACTURE TECHNIQUE: 3 views of the shoulder were acquired. COMPARISON: X-ray shoulder 09/03/2023 FINDINGS: Bones: Stable appearance of comminuted humeral head/neck fracture involving the greater tuberosity. There is no change in alignment. No definitive interval healing. Soft tissues: No suspicious soft tissue calcifications. The visualized lungs are within normal limi ts. IMPRESSION: Stable alignment of humeral head/neck fracture. Reviewed by: Bernice Carmona MD on 09/14/2023 5:44 PM PDT Approved by: Bernice Carmona MD on 09/14/2023 5:44 PM PDT Station ID: [id number]
== END 2023-09-14 09:37 | disposition home or self-care (01) ==
LOC: DI 09:36
PROVIDERS: ATTEND Orthopaedic Surgery
DX: S42.232D 3-part fracture of surgical neck of left humerus, subsequent encounter for fracture with routine healing (principal)

== ENCOUNTER 2024-02-01 11:20 | Outpatient (CLI) | payer MEDICARE, BC ==
--- NOTE | 2024-02-02 09:06 | Mammography Report ---
BILATERAL DIGITAL SCREENING MAMMOGRAM 3D/2D: 02/01/2024 CLINICAL: Routine screening. Comparison is made to exams dated: 01/18/2020 mammogram, 12/07/2018 mammogram, 11/18/2018 mammogram, mammogram, 03/18/2018 mammogram, and 01/16/2016 mammogram - [facility]. Both breasts are almost entirely fatty (category a/<25% glandular tissue). There is a biopsy clip in the right breast. No significant masses, calcifications, or other findings are seen in either breast. There has been no significant interval change. IMPRESSION: NEGATIVE There is no mammographic evidence of malignancy. A 1 year screening mammogram is recommended. Based on the Tyrer Cuzick model (a risk assessment model) the patient's lifetime risk is 2.0% and her 10 year risk is 0.0%. According to the ACR, ACS, and NCCN guidelines, an annual breast MRI exam octavia g with mammogram is recommended if the patient's lifetime risk is 20% or greater. This exam was interpreted at Station ID: [id number]. NOTE: For mammograms, a report in lay terms will be sent to the patient. Approximately 15% of breast malignancies will not be visualized mammographically. In the management of a palpable breast mass, a negative mammogram must not discourage biopsy of a clinically suspicious lesion. Electronically Signed By: Edgar george/hien:02/01/2024 18:50:24 letter sent: No_Letter ACR BI-RADS Category 1: Negative 3341F PARENCHYMAL PATTERN: (F) - The breast(s) demonstrate(s) diffuse fatty replacement. BI-RADS CATEGORY: (1) - 1 RECOMMENDATION: (ANNUAL) - Recommend routine annual screening mammography. [id number] 1 year screening LATERALITY: (B)
== END 2024-02-01 11:21 | disposition home or self-care (01) ==
LOC: DI.N 11:20
DX: Z12.31 Encounter for screening mammogram for malignant neoplasm of breast (principal)